=== PATIENT | female | born 1945 | race Caucasian/White ===

== ENCOUNTER 2019-03-24 13:28 | Emergency (ER) | payer MEDICARE ==
[~2019-03-24] VITALS: Ht 167.6 cm; Wt 54.4 kg
[2019-03-24] MEDS ORDERED: TETANUS/DIPHTHERIA TOX ADULT 0.5 ML SYR IM ONE (13:30)
--- NOTE | 2019-03-24 15:11 | Diagnostic Imaging Report ---
Exam: Left foot 3 views History: Pain Comparison: None. Findings: No fracture or malalignment. Joint spaces preserved. Plantar calcaneal enthesophyte. Impression: No acute osseous abnormality Signed by: Dr. Ty Gary M.D. on 03/24/2019 3:07 PM
== END 2019-03-24 15:54 | disposition home or self-care (01) ==
LOC: ER 13:28
DX: S91.332A Puncture wound without foreign body, left foot, initial encounter (principal); W45.0XXA Nail entering through skin, initial encounter; Y92.008 Other place in unspecified non-institutional (private) residence as the place of occurrence of the external cause
CPT/HCPCS: 90714; 99283